=== PATIENT | female | born 1975 | race Caucasian/White ===

== ENCOUNTER 2020-10-04 16:54 | Inpatient (IN) | payer BC ==
[~2020-10-04] VITALS: Ht 170.2 cm; Wt 135.0 kg
--- NOTE | 2020-10-04 17:22 | NUR ---
Patient has a sigmoid colon abcess and is scheduled for immediate surgery.
[2020-10-04 17:39] LABS: BASOPHILS # (AUTO) 0.1 X10'3 (0-0.2); BASOPHILS % (AUTO) 0.5 % (0-1); EOSINOPHILS # (AUTO) 0.1 X10'3 (0-0.9); EOSINOPHILS % (AUTO) 0.4 % (0-6); HEMATOCRIT 35.6 % (35.0-45.0); HEMOGLOBIN 11.9 g/dl (12.0-16.0); LYMPHOCYTES % (AUTO) 10.7 % (21-51); MEAN CORPUSCULAR HEMOGLOBIN 29.5 PG (27.0-31.0); MEAN CORPUSCULAR HGB CONC 33.3 g/dL (33.0-36.5); MEAN CORPUSCULAR VOLUME 88.7 FL (78-98); MEAN PLATELET VOLUME 7.9 FL (7.4-10.4); MONOCYTES # (AUTO) 1.4 X10'3 (0-0.9); MONOCYTES % (AUTO) 7.6 % (2-12); NEUTROPHILS # (AUTO) 14.8 X10'3 (1.8-7.7); NEUTROPHILS % (AUTO) 80.8 % (42-75); PLATELET COUNT 589 X10'3 (140-440); RED BLOOD COUNT 4.02 X10'6 (4.20-5.60); RED CELL DISTRIBUTION WIDTH 14.3 % (11.5-14.5); WHITE BLOOD COUNT 18.3 X10'3 (4.5-11.0)
[2020-10-04] MEDS ORDERED: ONDA8TAB13 PO (17:39)
[2020-10-04] MEDS ORDERED: PROM25TA14 PO (17:39)
[2020-10-04] MEDS ORDERED: METR-159 PO (17:39)
[2020-10-04] MEDS ORDERED: BACDS PO (17:39)
[2020-10-04] MEDS ORDERED: CETI10TA15 PO (17:45)
[2020-10-04] MEDS ORDERED: MULT-384 PO (17:45)
[2020-10-04] MEDS ORDERED: IBUP-24 PO (17:45)
[2020-10-04 17:55] LABS: ALANINE AMINOTRANSFERASE 36 U/L (12-78); ALBUMIN 2.8 G/DL (3.4-5.0); ALBUMIN/GLOBULIN RATIO 0.5 (1.1-1.5); ALKALINE PHOSPHATASE 212 IU/L (46-116); ANION GAP 8 (8-16); ASPARTATE AMINO TRANSFERASE 29 U/L (10-37); BILIRUBIN,TOTAL 0.6 MG/DL (0.1-1.0); BLOOD UREA NITROGEN 9 MG/DL (7-18); BUN/CREATININE RATIO 9.4 (6.6-38.0); CALCIUM 9.6 MG/DL (8.5-10.1); CHLORIDE 94 MMOL/L (99-107); CREATININE 0.96 MG/DL (0.40-0.90); GLUCOSE 111 MG/DL (70-104); SODIUM 132 MMOL/L (135-145); TOTAL PROTEIN 8.7 G/DL (6.4-8.2); eGFR 63 ML/MIN
[2020-10-04 18:01] LABS: POTASSIUM 2.8 MMOL/L (3.5-5.1)
[2020-10-04] MEDS ORDERED: ondansetron/PF 4mg/2ml inj IV ONE (18:05)
[2020-10-04] MEDS ORDERED: morphine 4 MG/ML inj SYRINge IV ONE (18:05)
[2020-10-04] MEDS ORDERED: potassium Cl 20 mEq SR tablet PO STA (19:17)
[2020-10-04] MEDS ORDERED: acetaminophen 325mg tablet PO PRN ×2 (19:40)
[2020-10-04] MEDS ORDERED: potassium Cl 20 mEq SR tablet PO PRN (19:40)
[2020-10-04] MEDS ORDERED: bisacodyl 10mg suppository rectal RC PRN (19:40)
[2020-10-04] MEDS ORDERED: ondansetron/PF 4mg/2ml inj IV PRN (19:40)
[2020-10-04] MEDS ORDERED: potassium Cl 40MEQ/1/2NS 520ml 520 ML IV PRN ×2 (19:40)
[2020-10-04] MEDS ORDERED: magnesium hydroxide 30ml (MOM) UD suspension PO PRN (19:40)
[2020-10-04] MEDS ORDERED: magnesium 2GM in 50ml NS 50 ML IV PRN (19:40)
[2020-10-04] MEDS ORDERED: HYDROcodone/acetaminophen 5mg/325mg tablet PO PRN (19:40)
[2020-10-04] MEDS ORDERED: magnesium 4gm in 100ml NS 100 ML IV PRN (19:40)
[2020-10-04] MEDS ORDERED: magnesium Cl slow-release 64mg tablet PO PRN (19:40)
[2020-10-04] MEDS ORDERED: mag hydrox/Alum hydrox/simeth 30ml oral suspension PO PRN (19:40)
[2020-10-04] MEDS ORDERED: piperacillin/tazo 4.5gm/100ml 100 ML IV ONE (19:55)
[2020-10-04 20:00] LABS: PARTIAL THROMBOPLASTIN TIME 31 SECONDS (22-32)
[2020-10-04] MEDS: K and/or MAG REPLACEMENT MC SCH (20:00)
[2020-10-04] MEDS ORDERED: piperacillin/tazo 4.5gm/100ml 100 ML IV SCH (20:00)
[2020-10-04] MEDS: normal saline 1000ml 1,000 ML IV SCH (20:18)
[2020-10-04] MEDS ORDERED: temazepam 15mg capsule PO PRN (21:00)
[2020-10-04] MEDS: HYDROcodone/acetaminophen 10/325mg tab PO PRN (21:13)
[2020-10-04] MEDS: HYDROmorphone inj. 0.5 MG/0.5 ML DISP.SYRIN IV PRN (22:05)
[2020-10-04] MEDS: piperacillin/tazo 3.375gm/50ml 50 ML IV SCH (23:56)
[2020-10-05] VITALS (9 sets, daily range): BP systolic 104–176; BP diastolic 70–104
[2020-10-05] MEDS: HYDROmorphone inj. 0.5 MG/0.5 ML DISP.SYRIN IV PRN ×3 (02:28→19:59)
[2020-10-05] MEDS: normal saline 1000ml 1,000 ML IV SCH ×2 (05:25→16:37)
[2020-10-05 06:29] LABS: BASOPHILS % (AUTO) 0.3 % (0-1); EOSINOPHILS # (AUTO) 0.1 X10'3 (0-0.9); EOSINOPHILS % (AUTO) 0.6 % (0-6); HEMATOCRIT 31.9 % (35.0-45.0); HEMOGLOBIN 10.6 g/dl (12.0-16.0); LYMPHOCYTES # (AUTO) 1.3 X10'3 (1.1-4.8); LYMPHOCYTES % (AUTO) 8.6 % (21-51); MEAN CORPUSCULAR HEMOGLOBIN 29.5 PG (27.0-31.0); MEAN CORPUSCULAR HGB CONC 33.1 g/dL (33.0-36.5); MONOCYTES # (AUTO) 1.3 X10'3 (0-0.9); MONOCYTES % (AUTO) 9.1 % (2-12); NEUTROPHILS # (AUTO) 11.8 X10'3 (1.8-7.7); NEUTROPHILS % (AUTO) 81.4 % (42-75); PLATELET COUNT 519 X10'3 (140-440); RED BLOOD COUNT 3.58 X10'6 (4.20-5.60); RED CELL DISTRIBUTION WIDTH 14.2 % (11.5-14.5); WHITE BLOOD COUNT 14.6 X10'3 (4.5-11.0)
[2020-10-05 06:36] LABS: ALANINE AMINOTRANSFERASE 30 U/L (12-78); ALBUMIN 2.4 G/DL (3.4-5.0); ALBUMIN/GLOBULIN RATIO 0.5 (1.1-1.5); ALKALINE PHOSPHATASE 194 IU/L (46-116); ANION GAP 7 (8-16); ASPARTATE AMINO TRANSFERASE 25 U/L (10-37); BILIRUBIN,TOTAL 0.7 MG/DL (0.1-1.0); BLOOD UREA NITROGEN 9 MG/DL (7-18); CALCIUM 8.7 MG/DL (8.5-10.1); CHLORIDE 98 MMOL/L (99-107); GLUCOSE 104 MG/DL (70-104); MAGNESIUM 2.4 MG/DL (1.5-2.4); POTASSIUM 3.3 MMOL/L (3.5-5.1); SODIUM 135 MMOL/L (135-145); TOTAL CARBON DIOXIDE 29.8 MMOL/L (24-32); TOTAL PROTEIN 7.6 G/DL (6.4-8.2); eGFR 68 ML/MIN
--- NOTE | 2020-10-05 06:49 | NUR ---
Patient in room [facility]. I have received report from Venkata NETTLES and had the opportunity to ask questions and assume patient care.
[2020-10-05] MEDS: cetirizine 10mg tablet PO SCH (07:34)
[2020-10-05] MEDS: piperacillin/tazo 3.375gm/50ml 50 ML IV SCH ×2 (07:34→16:44)
[2020-10-05] MEDS: potassium Cl 20 mEq SR tablet PO PRN ×3 (07:35→18:08)
[2020-10-05] MEDS: K and/or MAG REPLACEMENT MC SCH ×2 (08:00→20:00)
[2020-10-05] MEDS ORDERED: diatr meglu/diatrizoate 30ml oral sol.-(3 dose) bottle PO ONE (10:00)
[2020-10-05] MEDS ORDERED: midazolam 2 mg/2 ml injection ONE (10:21)
[2020-10-05] MEDS ORDERED: fentaNYL/PF 50MCG/1 ML 2ML syringe ONE ×2 (10:21→10:42)
[2020-10-05] MEDS: HYDROcodone/acetaminophen 10/325mg tab PO PRN ×2 (11:11→16:37)
[2020-10-05 11:22] LABS: BFAPPEAR TURBID; BFCOLOR GREEN; BFVOLUME 2 ML
--- NOTE | 2020-10-05 13:06 | NUR ---
Malnutrition consult. Pt met at bedside. Appears well nourished with no visible fat or muscle wasting. No edema. Reports not eating well for 2 weeks r/t fear of pain with eating d/t diverticulitis. Has drain for large pelvic abscess. Per patient diagnosed with diverticulosis, diverticulitis about 20 years ago and having flares past few months. Discussed in detail written handout for nutrition therapy r/t diverticulosis, diverticulitis. Pt verbalized understanding. Provided with RD contact information. No evidence of malnutrition at this time. Addendum: 10/05/20 at [address] Amended: Links added.
--- NOTE | 2020-10-05 17:47 | NUR ---
patient went to IR for drainage of abscess in colon. IR stated 300mls sang/purulent drainage removed . JARROD bulb to left lower abdomen in place . 90 mls drained purrulent/sang drainage on this shift. norco and dilaudid given for pain with effect. will continue to monitor.
--- NOTE | 2020-10-05 18:06 | NUR ---
Patient in room [facility]. I have received report from THO Sen and had the opportunity to ask questions and assume patient care.
--- NOTE | 2020-10-05 18:38 | NUR ---
Problems reprioritized. Patient report given, questions answered & plan of care reviewed with Rohit NETTLES.
[2020-10-05] MEDS: lactobacillus rhamnosus 10,000 MMU CELLS/CAPSULE PO SCH (20:01)
[2020-10-06] VITALS: BP 143/74
[2020-10-06] MEDS: HYDROcodone/acetaminophen 10/325mg tab PO PRN ×6 (00:09→23:43)
[2020-10-06] MEDS: piperacillin/tazo 3.375gm/50ml 50 ML IV SCH ×4 (00:10→23:43)
[2020-10-06] MEDS: normal saline 1000ml 1,000 ML IV SCH ×3 (01:58→19:57)
--- NOTE | 2020-10-06 06:22 | NUR ---
Problems reprioritized. Patient report given, questions answered & plan of care reviewed with THO Arguello.
--- NOTE | 2020-10-06 06:37 | NUR ---
Patient in room [facility]. I have received report from THO Bee and had the opportunity to ask questions and assume patient care.
[2020-10-06 07:00] VITALS: BP 130/80
[2020-10-06 07:19] LABS: BASOPHILS # (AUTO) 0.1 X10'3 (0-0.2); BASOPHILS % (AUTO) 0.6 % (0-1); EOSINOPHILS # (AUTO) 0.2 X10'3 (0-0.9); EOSINOPHILS % (AUTO) 1.6 % (0-6); HEMATOCRIT 31.1 % (35.0-45.0); HEMOGLOBIN 10.4 g/dl (12.0-16.0); LYMPHOCYTES # (AUTO) 1.8 X10'3 (1.1-4.8); LYMPHOCYTES % (AUTO) 19.1 % (21-51); MEAN CORPUSCULAR HGB CONC 33.5 g/dL (33.0-36.5); MEAN CORPUSCULAR VOLUME 89.4 FL (78-98); MEAN PLATELET VOLUME 7.9 FL (7.4-10.4); MONOCYTES # (AUTO) 0.9 X10'3 (0-0.9); MONOCYTES % (AUTO) 9.4 % (2-12); NEUTROPHILS # (AUTO) 6.7 X10'3 (1.8-7.7); NEUTROPHILS % (AUTO) 69.3 % (42-75); PLATELET COUNT 520 X10'3 (140-440); RED BLOOD COUNT 3.48 X10'6 (4.20-5.60); RED CELL DISTRIBUTION WIDTH 14.2 % (11.5-14.5); WHITE BLOOD COUNT 9.7 X10'3 (4.5-11.0)
[2020-10-06 07:20] LABS: ALANINE AMINOTRANSFERASE 30 U/L (12-78); ALBUMIN 2.2 G/DL (3.4-5.0); ALBUMIN/GLOBULIN RATIO 0.4 (1.1-1.5); ALKALINE PHOSPHATASE 176 IU/L (46-116); ANION GAP 5 (8-16); ASPARTATE AMINO TRANSFERASE 28 U/L (10-37); BILIRUBIN,TOTAL 0.6 MG/DL (0.1-1.0); BLOOD UREA NITROGEN 9 MG/DL (7-18); BUN/CREATININE RATIO 10.6 (6.6-38.0); CALCIUM 8.3 MG/DL (8.5-10.1); CHLORIDE 102 MMOL/L (99-107); CREATININE 0.85 MG/DL (0.40-0.90); GLUCOSE 99 MG/DL (70-104); MAGNESIUM 2.2 MG/DL (1.5-2.4); POTASSIUM 3.8 MMOL/L (3.5-5.1); SODIUM 137 MMOL/L (135-145); TOTAL CARBON DIOXIDE 30.5 MMOL/L (24-32); TOTAL PROTEIN 7.2 G/DL (6.4-8.2); eGFR 72 ML/MIN
[2020-10-06] MEDS: lactobacillus rhamnosus 10,000 MMU CELLS/CAPSULE PO SCH ×2 (07:23→19:57)
[2020-10-06] MEDS: cetirizine 10mg tablet PO SCH (07:23)
[2020-10-06] MEDS: K and/or MAG REPLACEMENT MC SCH ×2 (08:00→20:00)
[2020-10-06 12:37] VITALS: BP 109/65
[2020-10-06] MEDS: HYDROmorphone inj. 0.5 MG/0.5 ML DISP.SYRIN IV PRN (17:03)
[2020-10-06 18:30] VITALS: BP 131/84
--- NOTE | 2020-10-06 18:36 | NUR ---
Patient in room [facility]. I have received report from THO Arguello and had the opportunity to ask questions and assume patient care. Patient resting comfortably in bed, finishing up meal.
--- NOTE | 2020-10-06 18:46 | NUR ---
Problems reprioritized. Patient report given, questions answered & plan of care reviewed with THO Mcallister.
[2020-10-07] VITALS: BP 120/84
[2020-10-07] MEDS: HYDROcodone/acetaminophen 10/325mg tab PO PRN ×4 (03:44→20:04)
--- NOTE | 2020-10-07 06:46 | NUR ---
Problems reprioritized. Patient report given, questions answered & plan of care reviewed with THO Villagomez.
--- NOTE | 2020-10-07 06:52 | NUR ---
Patient in room [facility]. I have received report from Ary NETTLES and had the opportunity to ask questions and assume patient care.
[2020-10-07 07:29] LABS: BASOPHILS # (AUTO) 0.1 X10'3 (0-0.2); BASOPHILS % (AUTO) 0.8 % (0-1); EOSINOPHILS # (AUTO) 0.3 X10'3 (0-0.9); EOSINOPHILS % (AUTO) 3.5 % (0-6); HEMATOCRIT 30.4 % (35.0-45.0); HEMOGLOBIN 9.9 g/dl (12.0-16.0); LYMPHOCYTES # (AUTO) 1.8 X10'3 (1.1-4.8); LYMPHOCYTES % (AUTO) 24.6 % (21-51); MEAN CORPUSCULAR HEMOGLOBIN 29.2 PG (27.0-31.0); MEAN CORPUSCULAR HGB CONC 32.5 g/dL (33.0-36.5); MEAN CORPUSCULAR VOLUME 89.6 FL (78-98); MEAN PLATELET VOLUME 7.9 FL (7.4-10.4); MONOCYTES # (AUTO) 0.7 X10'3 (0-0.9); MONOCYTES % (AUTO) 9.3 % (2-12); NEUTROPHILS # (AUTO) 4.6 X10'3 (1.8-7.7); NEUTROPHILS % (AUTO) 61.8 % (42-75); PLATELET COUNT 514 X10'3 (140-440); RED BLOOD COUNT 3.39 X10'6 (4.20-5.60); RED CELL DISTRIBUTION WIDTH 14.5 % (11.5-14.5); WHITE BLOOD COUNT 7.4 X10'3 (4.5-11.0)
[2020-10-07] MEDS: lactobacillus rhamnosus 10,000 MMU CELLS/CAPSULE PO SCH ×2 (07:33→20:05)
[2020-10-07] MEDS: cetirizine 10mg tablet PO SCH (07:33)
[2020-10-07] MEDS: piperacillin/tazo 3.375gm/50ml 50 ML IV SCH ×3 (07:33→23:11)
[2020-10-07] MEDS: normal saline 1000ml 1,000 ML IV SCH ×2 (07:34→17:05)
[2020-10-07 08:00] VITALS: BP 132/89
[2020-10-07] MEDS: K and/or MAG REPLACEMENT MC SCH ×2 (08:00→20:00)
[2020-10-07 08:08] LABS: ALANINE AMINOTRANSFERASE 32 U/L (12-78); ALBUMIN 2.1 G/DL (3.4-5.0); ALBUMIN/GLOBULIN RATIO 0.5 (1.1-1.5); ALKALINE PHOSPHATASE 153 IU/L (46-116); ANION GAP 7 (8-16); ASPARTATE AMINO TRANSFERASE 35 U/L (10-37); BILIRUBIN,TOTAL 0.3 MG/DL (0.1-1.0); BLOOD UREA NITROGEN 9 MG/DL (7-18); BUN/CREATININE RATIO 11.1 (6.6-38.0); CHLORIDE 104 MMOL/L (99-107); CREATININE 0.81 MG/DL (0.40-0.90); GLUCOSE 88 MG/DL (70-104); MAGNESIUM 2.3 MG/DL (1.5-2.4); POTASSIUM 3.9 MMOL/L (3.5-5.1); SODIUM 138 MMOL/L (135-145); TOTAL CARBON DIOXIDE 26.9 MMOL/L (24-32); TOTAL PROTEIN 6.7 G/DL (6.4-8.2); eGFR 76 ML/MIN
[2020-10-07 11:00] VITALS: BP 142/97
--- NOTE | 2020-10-07 18:00 | NUR ---
Patient in room [facility]. I have received report from Dahlia NETTLES and had the opportunity to ask questions and assume patient care.
--- NOTE | 2020-10-07 18:29 | NUR ---
Problems reprioritized. Patient report given, questions answered & plan of care reviewed with Eliza NETTLES.
[2020-10-07 19:00] VITALS: BP 136/89
[2020-10-07] MEDS: diatr meglu/diatrizoate 30ml oral sol.-(3 dose) bottle PO SCH (20:43)
[2020-10-08] VITALS: BP 142/93
[2020-10-08] MEDS: HYDROcodone/acetaminophen 10/325mg tab PO PRN ×5 (00:06→21:17)
[2020-10-08] MEDS: normal saline 1000ml 1,000 ML IV SCH ×3 (03:31→23:43)
[2020-10-08 06:13] LABS: BASOPHILS # (AUTO) 0.1 X10'3 (0-0.2); BASOPHILS % (AUTO) 0.9 % (0-1); EOSINOPHILS # (AUTO) 0.2 X10'3 (0-0.9); EOSINOPHILS % (AUTO) 3.4 % (0-6); HEMATOCRIT 32.1 % (35.0-45.0); HEMOGLOBIN 10.5 g/dl (12.0-16.0); LYMPHOCYTES # (AUTO) 2.3 X10'3 (1.1-4.8); LYMPHOCYTES % (AUTO) 32.6 % (21-51); MEAN CORPUSCULAR HEMOGLOBIN 29.3 PG (27.0-31.0); MEAN CORPUSCULAR HGB CONC 32.6 g/dL (33.0-36.5); MEAN CORPUSCULAR VOLUME 89.9 FL (78-98); MEAN PLATELET VOLUME 7.8 FL (7.4-10.4); MONOCYTES # (AUTO) 0.6 X10'3 (0-0.9); MONOCYTES % (AUTO) 8.1 % (2-12); NEUTROPHILS # (AUTO) 3.8 X10'3 (1.8-7.7); PLATELET COUNT 588 X10'3 (140-440); RED BLOOD COUNT 3.57 X10'6 (4.20-5.60); RED CELL DISTRIBUTION WIDTH 14.4 % (11.5-14.5); WHITE BLOOD COUNT 6.9 X10'3 (4.5-11.0)
--- NOTE | 2020-10-08 06:24 | NUR ---
Problems reprioritized. Patient report given, questions answered & plan of care reviewed with Juana NETTLES.
--- NOTE | 2020-10-08 06:34 | NUR ---
Patient in room [facility]. I have received report from THO Kay and had the opportunity to ask questions and assume patient care.
[2020-10-08 06:38] LABS: ALANINE AMINOTRANSFERASE 37 U/L (12-78); ALBUMIN 2.3 G/DL (3.4-5.0); ALBUMIN/GLOBULIN RATIO 0.5 (1.1-1.5); ALKALINE PHOSPHATASE 158 IU/L (46-116); ANION GAP 8 (8-16); ASPARTATE AMINO TRANSFERASE 38 U/L (10-37); BILIRUBIN,TOTAL 0.3 MG/DL (0.1-1.0); BLOOD UREA NITROGEN 9 MG/DL (7-18); BUN/CREATININE RATIO 11.3 (6.6-38.0); CALCIUM 8.9 MG/DL (8.5-10.1); CHLORIDE 105 MMOL/L (99-107); GLUCOSE 91 MG/DL (70-104); MAGNESIUM 2.2 MG/DL (1.5-2.4); POTASSIUM 3.9 MMOL/L (3.5-5.1); SODIUM 140 MMOL/L (135-145); TOTAL CARBON DIOXIDE 27.4 MMOL/L (24-32); TOTAL PROTEIN 7.3 G/DL (6.4-8.2); eGFR 78 ML/MIN
[2020-10-08 07:00] VITALS: BP 136/96
[2020-10-08] MEDS: K and/or MAG REPLACEMENT MC SCH ×2 (07:10→20:00)
[2020-10-08] MEDS: lactobacillus rhamnosus 10,000 MMU CELLS/CAPSULE PO SCH ×2 (07:17→21:17)
[2020-10-08] MEDS: diatr meglu/diatrizoate 30ml oral sol.-(3 dose) bottle PO SCH ×2 (07:17→10:29)
[2020-10-08] MEDS: cetirizine 10mg tablet PO SCH (07:17)
[2020-10-08] MEDS: piperacillin/tazo 3.375gm/50ml 50 ML IV SCH ×3 (07:17→23:41)
[2020-10-08] MEDS ORDERED: iohexol 300mg/ml 100ml inj. ONE (09:59)
[2020-10-08 11:00] VITALS: BP 154/109
[2020-10-08] MEDS: HYDROmorphone inj. 0.5 MG/0.5 ML DISP.SYRIN IV PRN (17:42)
--- NOTE | 2020-10-08 18:56 | NUR ---
Problems reprioritized. Patient report given, questions answered & plan of care reviewed with THO Sung.
[2020-10-08 19:00] VITALS: BP 129/82
[2020-10-08] MEDS: enoxaparin 40mg/0.4ml syringe SUBCUT SCH (21:18)
[2020-10-09] VITALS: BP 127/90
[2020-10-09] MEDS: HYDROcodone/acetaminophen 10/325mg tab PO PRN ×3 (01:59→18:39)
[2020-10-09] MEDS: HYDROmorphone inj. 0.5 MG/0.5 ML DISP.SYRIN IV PRN (04:16)
[2020-10-09 06:19] LABS: BASOPHILS # (AUTO) 0.1 X10'3 (0-0.2); BASOPHILS % (AUTO) 0.9 % (0-1); EOSINOPHILS # (AUTO) 0.2 X10'3 (0-0.9); HEMATOCRIT 30.1 % (35.0-45.0); LYMPHOCYTES # (AUTO) 1.9 X10'3 (1.1-4.8); LYMPHOCYTES % (AUTO) 23.8 % (21-51); MEAN CORPUSCULAR HGB CONC 33.3 g/dL (33.0-36.5); MEAN CORPUSCULAR VOLUME 90.1 FL (78-98); MEAN PLATELET VOLUME 7.7 FL (7.4-10.4); MONOCYTES # (AUTO) 0.6 X10'3 (0-0.9); MONOCYTES % (AUTO) 7.4 % (2-12); NEUTROPHILS # (AUTO) 5.1 X10'3 (1.8-7.7); NEUTROPHILS % (AUTO) 64.9 % (42-75); PLATELET COUNT 551 X10'3 (140-440); RED BLOOD COUNT 3.34 X10'6 (4.20-5.60); RED CELL DISTRIBUTION WIDTH 14.3 % (11.5-14.5); WHITE BLOOD COUNT 7.8 X10'3 (4.5-11.0)
[2020-10-09 06:24] LABS: ALANINE AMINOTRANSFERASE 36 U/L (12-78); ALBUMIN 2.3 G/DL (3.4-5.0); ALBUMIN/GLOBULIN RATIO 0.5 (1.1-1.5); ALKALINE PHOSPHATASE 136 IU/L (46-116); ANION GAP 8 (8-16); ASPARTATE AMINO TRANSFERASE 36 U/L (10-37); BILIRUBIN,TOTAL 0.3 MG/DL (0.1-1.0); BLOOD UREA NITROGEN 8 MG/DL (7-18); BUN/CREATININE RATIO 9.2 (6.6-38.0); CALCIUM 8.7 MG/DL (8.5-10.1); CHLORIDE 106 MMOL/L (99-107); CREATININE 0.87 MG/DL (0.40-0.90); GLUCOSE 96 MG/DL (70-104); MAGNESIUM 2.1 MG/DL (1.5-2.4); SODIUM 141 MMOL/L (135-145); TOTAL CARBON DIOXIDE 26.9 MMOL/L (24-32); TOTAL PROTEIN 6.8 G/DL (6.4-8.2); eGFR 70 ML/MIN
[2020-10-09 07:00] VITALS: BP 122/78
[2020-10-09] MEDS: K and/or MAG REPLACEMENT MC SCH ×2 (07:02→20:00)
[2020-10-09] MEDS: lactobacillus rhamnosus 10,000 MMU CELLS/CAPSULE PO SCH ×2 (07:44→19:18)
[2020-10-09] MEDS: cetirizine 10mg tablet PO SCH (07:44)
[2020-10-09] MEDS: piperacillin/tazo 3.375gm/50ml 50 ML IV SCH ×2 (07:44→17:00)
[2020-10-09 11:00] VITALS: BP 141/95
--- NOTE | 2020-10-09 14:32 | NUR ---
Initial: Has drain for large pelvic diverticular abscess, minimal output. Receiving treatment for MDRO. Per patient diagnosed with diverticulosis, diverticulitis about 20 years ago and having flares past few months. Appetite improved, eating 75-100% for two days. No other nutrition concerns at this time. recommend: 1. continue soft to chew/low fiber diet 2. bowel care as needed 3. weight per rx Addendum: 10/09/20 at [address] Amended: Links added.
[2020-10-09 18:00] VITALS: BP 150/85
--- NOTE | 2020-10-09 18:28 | NUR ---
Patient in room [facility]. I have received report from THO Arias and had the opportunity to ask questions and assume patient care
--- NOTE | 2020-10-09 18:28 | NUR ---
Problems reprioritized. Patient report given, questions answered & plan of care reviewed with THO Trejo.
[2020-10-09] MEDS: enoxaparin 40mg/0.4ml syringe SUBCUT SCH (19:18)
[2020-10-10] VITALS: BP 144/85
[2020-10-10] MEDS: piperacillin/tazo 3.375gm/50ml 50 ML IV SCH ×4 (00:08→23:34)
[2020-10-10] MEDS: HYDROcodone/acetaminophen 10/325mg tab PO PRN ×2 (01:24→17:35)
[2020-10-10] MEDS: HYDROmorphone inj. 0.5 MG/0.5 ML DISP.SYRIN IV PRN (04:00)
--- NOTE | 2020-10-10 06:32 | NUR ---
Problems reprioritized. Patient report given, questions answered & plan of care reviewed with THO Tay.
--- NOTE | 2020-10-10 06:43 | NUR ---
Patient in room [facility]. I have received report from Natalie Trejo RN and had the opportunity to ask questions and assume patient care.
[2020-10-10 08:00] VITALS: BP 133/81
[2020-10-10] MEDS: K and/or MAG REPLACEMENT MC SCH ×2 (08:00→19:45)
[2020-10-10] MEDS: cetirizine 10mg tablet PO SCH (08:13)
[2020-10-10] MEDS: lactobacillus rhamnosus 10,000 MMU CELLS/CAPSULE PO SCH ×2 (08:13→19:43)
[2020-10-10 12:00] VITALS: BP 138/97
--- NOTE | 2020-10-10 18:49 | NUR ---
Problems reprioritized. Patient report given, questions answered & plan of care reviewed with Linda RN.
[2020-10-10 19:30] VITALS: BP 141/113
[2020-10-10] MEDS: enoxaparin 40mg/0.4ml syringe SUBCUT SCH (19:43)
[2020-10-11] VITALS: BP 128/74
[2020-10-11] MEDS: HYDROcodone/acetaminophen 10/325mg tab PO PRN ×3 (03:12→19:57)
[2020-10-11 07:00] VITALS: BP 130/74
[2020-10-11] MEDS: cetirizine 10mg tablet PO SCH (07:51)
[2020-10-11] MEDS: lactobacillus rhamnosus 10,000 MMU CELLS/CAPSULE PO SCH ×2 (07:51→19:19)
[2020-10-11] MEDS: piperacillin/tazo 3.375gm/50ml 50 ML IV SCH ×3 (07:53→23:43)
[2020-10-11] MEDS: K and/or MAG REPLACEMENT MC SCH ×2 (08:00→20:00)
[2020-10-11] MEDS ORDERED: CEFD300C3 PO (10:25)
[2020-10-11] MEDS ORDERED: METR-159 PO (10:25)
[2020-10-11 11:00] VITALS: BP 135/86
[2020-10-11 18:00] VITALS: BP 127/72
--- NOTE | 2020-10-11 18:43 | NUR ---
Problems reprioritized. Patient report given, questions answered & plan of care reviewed with Rohit NETTLES.
--- NOTE | 2020-10-11 18:45 | NUR ---
Patient in room [facility]. I have received report from THO Eller and had the opportunity to ask questions and assume patient care.
[2020-10-11] MEDS: enoxaparin 40mg/0.4ml syringe SUBCUT SCH (19:19)
[2020-10-12] VITALS: BP 141/68
--- NOTE | 2020-10-12 06:02 | NUR ---
Problems reprioritized. Patient report given, questions answered & plan of care reviewed with THO Timmons.
--- NOTE | 2020-10-12 06:25 | NUR ---
Patient in room [facility]. I have received report from THO MCDONNELL and had the opportunity to ask questions and assume patient care.
[2020-10-12 08:00] VITALS: BP 116/76
[2020-10-12] MEDS: K and/or MAG REPLACEMENT MC SCH (08:00)
[2020-10-12] MEDS: piperacillin/tazo 3.375gm/50ml 50 ML IV SCH (08:17)
[2020-10-12] MEDS: HYDROcodone/acetaminophen 10/325mg tab PO PRN ×2 (08:18→15:45)
[2020-10-12] MEDS: cetirizine 10mg tablet PO SCH (08:18)
[2020-10-12] MEDS: lactobacillus rhamnosus 10,000 MMU CELLS/CAPSULE PO SCH (08:18)
--- NOTE | 2020-10-12 09:39 | NUR ---
5F DUAL LUMEN MIDLINE PLACED TO RIGHT BASILIC VEIN X'S 1 ATTEMPT WITH SUCCESS USING ULTRASOUND GUIDANCE, TIP ENDS MID-AXILLARY. Linda HARTMANN PICC RN
[2020-10-12] MEDS ORDERED: HYDR-4353 PO (10:19)
[2020-10-12 11:00] VITALS: BP 127/83
[2020-10-12] MEDS ORDERED: ertapenem sod inj 1 GM in normal saline 100ml IV soln 100 ML IV SCH (15:00)
--- NOTE | 2020-10-12 17:40 | NUR ---
PATIENT STABLE AND APPROPRIATE FOR DISCHARGE, IV TAKEN OUT, EDUCATION GIVEN AND SUPPLIES TO DRAIN JARROD DRAIN, SCRIPT FOR PAIN MEDS GIVEN TO PATIENT, ALL BELONGINGS SENT WITH PATIENT, PATIENT TAKEN BY WHEELCHAIR TO LOBBY TO AN AWAITING CAR WHERE FAMILY WILL TAKE PATIENT HOME
== END 2020-10-12 17:42 | disposition home or self-care (01) | DRG 391 ==
LOC: ER 16:55 → ED HOLD 19:37 → SUR 3N 21:45
PROVIDERS: ADMIT Family Medicine; ATTEND Internal Medicine
PROC: 0W9J3ZZ Drainage of Pelvic Cavity, Percutaneous Approach (ICD-10-PCS; principal; 2020-10-05)
DX: K57.20 Diverticulitis of large intestine with perforation and abscess without bleeding (principal); E43 Unspecified severe protein-calorie malnutrition; N17.0 Acute kidney failure with tubular necrosis; E87.1 Hypo-osmolality and hyponatremia; Z16.24 Resistance to multiple antibiotics; Z68.42 Body mass index [BMI] 45.0-49.9, adult; B96.1 Klebsiella pneumoniae [K. pneumoniae] as the cause of diseases classified elsewhere; D64.9 Anemia, unspecified; E87.6 Hypokalemia; J45.909 Unspecified asthma, uncomplicated; M77.9 Enthesopathy, unspecified; Z88.1 Allergy status to other antibiotic agents; Z87.891 Personal history of nicotine dependence
CPT/HCPCS: 36415; 49406; 74177; 76700; 76937; 80053; 83605; 83735; 85025; 85610; 85730; 87040; 87070; 87077; 87081; 87186; 89051; 96374; 99152; 99153; 99285; G0378; J1170; J1335; J1650; J2250; J2270; J2405; J2543; J3010; J7030; Q9963; Q9967

== ENCOUNTER 2021-01-11 05:36 | Inpatient (IN) | payer BC ==
[2021-01-04 11:09] LABS: BASOPHILS % (AUTO) 0.7 % (0-1); EOSINOPHILS # (AUTO) 0.1 X10'3 (0-0.9); EOSINOPHILS % (AUTO) 1.6 % (0-6); LYMPHOCYTES # (AUTO) 1.7 X10'3 (1.1-4.8); LYMPHOCYTES % (AUTO) 25.1 % (21-51); MEAN CORPUSCULAR HEMOGLOBIN 29.9 PG (27.0-31.0); MEAN CORPUSCULAR HGB CONC 32.8 g/dL (33.0-36.5); MEAN CORPUSCULAR VOLUME 91.3 FL (78-98); MEAN PLATELET VOLUME 7.8 FL (7.4-10.4); MONOCYTES # (AUTO) 0.5 X10'3 (0-0.9); MONOCYTES % (AUTO) 7.7 % (2-12); NEUTROPHILS # (AUTO) 4.3 X10'3 (1.8-7.7); NEUTROPHILS % (AUTO) 64.9 % (42-75); PRE OP HEMATOCRIT 39.6 % (35.0-45.0); PRE OP PLATELET COUNT 352 X10'3 (140-440); RED BLOOD COUNT 4.34 X10'6 (4.20-5.60); RED CELL DISTRIBUTION WIDTH 13.9 % (11.5-14.5)
[2021-01-04 11:11] LABS: URINE HCG NEGATIVE (NEG)
[2021-01-04 11:12] LABS: CLARITY,URINE CLEAR (Clear); COLOR,URINE YELLOW (Yellow); GLUCOSE, URINE NEGATIVE (Neg); KETONES,URINE NEGATIVE (Neg); LEUKOCYTE ESTERASE ,URINE NEGATIVE (Neg); NITRITES, URINE NEGATIVE (Neg); OCCULT BLOOD,URINE SMALL (Neg); PROTEIN,URINE NEGATIVE (Neg); UA COLLECTION TYPE CLN CATCH MIDSTREAM; UROBILINOGEN,URINE 0.2 E.U/dL (0.2-1.0)
[2021-01-04 11:18] LABS: PRE OP PROTIME 10.4 SECONDS (9.0-12.0)
[2021-01-04 11:29] LABS: SQUAMOUS EPITHELIAL CELL,UR FEW /LPF (FEW)
[2021-01-04 11:29] LABS: ALBUMIN 3.4 G/DL (3.4-5.0); ALBUMIN/GLOBULIN RATIO 0.9 (1.1-1.5); ALKALINE PHOSPHATASE 86 IU/L (46-116); BLOOD UREA NITROGEN 21 MG/DL (7-18); BUN/CREATININE RATIO 24.4 (6.6-38.0); CALCIUM 9.2 MG/DL (8.5-10.1); CHLORIDE 108 MMOL/L (99-107); CREATININE 0.86 MG/DL (0.40-0.90); PRE OP ALT 25 U/L (30-65); PRE OP ANION GAP 7 (8-16); PRE OP AST 15 U/L (10-37); PRE OP BILIRUB, TOTAL 0.4 MG/DL (0.0-1.0); PRE OP GLUCOSE 84 MG/DL (70-104); PRE OP POTASSIUM 4.4 MMOL/L (3.4-5.1); PRE OP SODIUM 142 MMOL/L (135-145); TOTAL CARBON DIOXIDE 26.6 MMOL/L (24-32); TOTAL PROTEIN 7.3 G/DL (6.4-8.2); eGFR 71 ML/MIN
[2021-01-04 11:31] LABS: RBC,URINE 0-2 /HPF (0-2); WBC,URINE 0-4 /HPF (0-4)
[2021-01-04 11:32] LABS: BACTERIA,URINE FEW /HPF (Neg)
[2021-01-11] VITALS (30 sets, daily range): BP systolic 102–140; BP diastolic 59–99
[~2021-01-11] VITALS: Ht 170.2 cm; Wt 138.3 kg
[~2021-01-11 05:36] MED LIST: ASPI-147 PO; CETI10TA15 PO; IBUP-24 PO; POLY119P2 PO; ceFOXitin 2GM-NS 100mL ADDvant 100 ML IV ONE; famotidine 20mg tablet PO ONE; metroNIDAZOLE-Flagyl 500mg/NS 100ml IVPB IV ONE
[2021-01-11] MEDS ORDERED: LIDOcaine 1% (10mg/ml) 2ml vial ONE (05:51)
[2021-01-11] MEDS: ringers solution, lacted 1,000 ML IV SCH ×2 (06:12→15:38)
[2021-01-11] MEDS ORDERED: BUPIVAcaine/PF 2.5 mg/ml (0.25%) 30ml vial ONE (07:39)
[2021-01-11] MEDS ORDERED: glycopyrrolate 0.2mg/ml inj ONE (08:05)
[2021-01-11] MEDS ORDERED: pancuronium br 1mg/ml inj IV ONE (08:05)
[2021-01-11] MEDS ORDERED: neostigmine methylsulfate 1 MG/ML 10ml vial ONE (08:05)
[2021-01-11] MEDS ORDERED: sevoflurane 250ml liquid IH ONE (08:05)
[2021-01-11] MEDS ORDERED: midazolam 1 mg/ML 2ml injection ONE (08:16)
[2021-01-11] MEDS ORDERED: fentaNYL /PF 50mcg/ml 5ml ampule ONE (08:17)
[2021-01-11] MEDS ORDERED: propofol inj 20 ML IV ONE (08:18)
[2021-01-11] MEDS ORDERED: LIDOcaine 2% (20mg/ml) 5ml vial ONE (08:18)
[2021-01-11] MEDS ORDERED: rocuronium 10mg/ml inj IV ONE (08:19)
[2021-01-11] MEDS ORDERED: dexamethasone sod phosphate 4mg/ml inj. ONE (08:27)
[2021-01-11] MEDS ORDERED: ondansetron/PF 4mg/2ml inj ONE (08:27)
[2021-01-11] MEDS ORDERED: ringers solution, lacted 1,000 ML IV SCH (09:15)
[2021-01-11] MEDS ORDERED: meperidine/PF 25mg/ml syringe IV PRN ×2 (09:15)
[2021-01-11] MEDS ORDERED: morphine 2 MG/ML inj. syringe IV PRN (09:15)
[2021-01-11] MEDS ORDERED: proCHLORperazine 10 MG/2 ml inj IV PRN (09:15)
[2021-01-11] MEDS ORDERED: ondansetron/PF 4mg/2ml inj IV PRN (09:15)
[2021-01-11] MEDS ORDERED: acetaminophen 1,000mg/100ml IV 100 ML IV ONE (10:20)
[2021-01-11] MEDS ORDERED: meperidine/PF 25mg/ml syringe ONE (10:21)
--- NOTE | 2021-01-11 11:35 | NUR ---
Received from OR via BED, accompanied by Anesthesiologist DR GALINDO and report given by Anesthesiologist. PT DROWSY, ABDOMEN W/4 LAP SITES W/DERMABOND, NO DRAINAGE, LOWER ABDOMEN W/SMALL ISLAND DRSG COVERING INCISION CDI. NAVA CATHETER TO GRAVITY DRAINAGE W/DUQUE URINE IN DRAINAGE BAG. Addendum: 01/11/21 at 1237 by Altagracia Kasper RN Amended: Links added.
[2021-01-11] MEDS: meperidine/PF 25mg/ml syringe IV PRN ×2 (11:43→12:43)
[2021-01-11] MEDS ORDERED: ketorolac trometh. 30mg/ml inj. IV ONE (11:50)
[2021-01-11] MEDS: morphine 4 MG/ML inj SYRINge IV PRN ×3 (11:51→12:17)
--- NOTE | 2021-01-11 13:04 | NUR ---
CALLED DR BLOOM W/UPDATE OF PTS PAIN, SPASMS, AND LEAKING AROUND NAVA CATHETER, RESIDENT WORKING W/DR BLOOM CAME IN AND REMOVED A PORTION OF THE CATHETER WITH SMALL AMT OF URINE RETURN IN CATHETER TUBING. ORDERS TO START A DILAUDID CADD. Addendum: 01/11/21 at 1307 by Altagracia aKsper RN Amended: Links added.
[2021-01-11] MEDS ORDERED: normal saline 1000ml 1,000 ML IV SCH (13:10)
[2021-01-11] MEDS ORDERED: CADD PCA waste documentation MC PRN ×2 (13:10→14:20)
[2021-01-11] MEDS ORDERED: naloxone 0.4 mg/ml inj IV PRN ×2 (13:10→14:20)
--- NOTE | 2021-01-11 14:00 | NUR ---
DR BLOOM RESIDENT RETURNED FOR ASSESSMENT, PT W/APPROX 50 ML URINE IN DRAINAGE BAG, (REMAINS DUQUE COLORED BUT LIGHTENING IN COLOR. BLADDER SCANNED PT FOR 4 ML URINE, ORDERS TO GIVEN REST OF IVF (700) A FLUID BOLUS. BOLUS INFUSING, DILAUDID CADD ATTACHED AND PT USING CORRECTLY, PT STATES SHE IS FEELING BETTER, PAIN IMPROVED. REPORT CALLED TO COLORECTAL SURGEON. Addendum: 01/11/21 at 1544 by Altagracia Kasper RN Amended: Links added.
[2021-01-11] MEDS: HYDROmorphone/NS 1 mg/ml CADD 50 ML IV SCH ×6 (14:21→22:46)
--- NOTE | 2021-01-11 14:55 | NUR ---
Report called to receiving nurse. Transferred via BED, 1 DUFFLE BAG OF Belongings SENT W/PT TO ROOM 346A, NURSES AIDE AT BEDSIDE TO RECEIVE PT. Special Issues communicated to receiving nurse. YES. Addendum: 01/11/21 at 1545 by Altagracia Kasper RN Amended: Links added.
--- NOTE | 2021-01-11 15:00 | NUR ---
Received pt from recovery via bed. Pt awake A&O. c/o pain 8/ Dil cadd present and pt demonstrates proper use. % lap sitws and small loer medial incision. Island dressing with drainage noted and circled for monitoring. Discussed Post op POC. Pt verbalized understanding. Call light in reach, bed low, pt in no acute distress. VSS
[2021-01-11] MEDS: Potassium Cl inj 20 MEQ in ringers solution, lacted 1,000 ML IV SCH ×2 (15:19→22:25)
[2021-01-11 15:21] LABS: BASOPHILS # (AUTO) 0.1 X10'3 (0-0.2); BASOPHILS % (AUTO) 0.7 % (0-1); EOSINOPHILS # (AUTO) 0.1 X10'3 (0-0.9); EOSINOPHILS % (AUTO) 0.6 % (0-6); HEMATOCRIT 38.8 % (35.0-45.0); HEMOGLOBIN 12.6 g/dl (12.0-16.0); LYMPHOCYTES # (AUTO) 0.9 X10'3 (1.1-4.8); LYMPHOCYTES % (AUTO) 4.7 % (21-51); MEAN CORPUSCULAR HEMOGLOBIN 30.1 PG (27.0-31.0); MEAN CORPUSCULAR HGB CONC 32.4 g/dL (33.0-36.5); MEAN CORPUSCULAR VOLUME 92.6 FL (78-98); MEAN PLATELET VOLUME 8.4 FL (7.4-10.4); MONOCYTES # (AUTO) 0.8 X10'3 (0-0.9); MONOCYTES % (AUTO) 4.1 % (2-12); NEUTROPHILS # (AUTO) 17.5 X10'3 (1.8-7.7); NEUTROPHILS % (AUTO) 89.9 % (42-75); PLATELET COUNT 284 X10'3 (140-440); RED BLOOD COUNT 4.19 X10'6 (4.20-5.60); RED CELL DISTRIBUTION WIDTH 13.3 % (11.5-14.5); WHITE BLOOD COUNT 19.4 X10'3 (4.5-11.0)
[2021-01-11 16:15] LABS: ALANINE AMINOTRANSFERASE 37 U/L (12-78); ALBUMIN 3.1 G/DL (3.4-5.0); ALBUMIN/GLOBULIN RATIO 0.9 (1.1-1.5); ALKALINE PHOSPHATASE 79 IU/L (46-116); ANION GAP 14 (8-16); ASPARTATE AMINO TRANSFERASE 48 U/L (10-37); BLOOD UREA NITROGEN 21 MG/DL (7-18); BUN/CREATININE RATIO 21.6 (6.6-38.0); CALCIUM 8.8 MG/DL (8.5-10.1); CHLORIDE 102 MMOL/L (99-107); CREATININE 0.97 MG/DL (0.40-0.90); GLUCOSE 125 MG/DL (70-104); SODIUM 137 MMOL/L (135-145); TOTAL CARBON DIOXIDE 20.8 MMOL/L (24-32); TOTAL PROTEIN 6.5 G/DL (6.4-8.2); eGFR 62 ML/MIN
[2021-01-11 16:17] LABS: POTASSIUM 4.2 MMOL/L (3.5-5.1)
--- NOTE | 2021-01-11 18:08 | NUR ---
Problems reprioritized. Patient report given, questions answered & plan of care reviewed with Linda RN.
[2021-01-12] VITALS: BP 107/51
[2021-01-12] MEDS: HYDROmorphone/NS 1 mg/ml CADD 50 ML IV SCH ×12 (01:00→23:00)
[2021-01-12 03:30] VITALS: BP 116/63
[2021-01-12] MEDS: Potassium Cl inj 20 MEQ in ringers solution, lacted 1,000 ML IV SCH ×4 (05:17→20:59)
[2021-01-12 05:54] LABS: BASOPHILS % (AUTO) 0.1 % (0-1); EOSINOPHILS % (AUTO) 0.1 % (0-6); HEMATOCRIT 33.1 % (35.0-45.0); LYMPHOCYTES # (AUTO) 1.2 X10'3 (1.1-4.8); LYMPHOCYTES % (AUTO) 8.2 % (21-51); MEAN CORPUSCULAR HEMOGLOBIN 30.1 PG (27.0-31.0); MEAN CORPUSCULAR HGB CONC 33.1 g/dL (33.0-36.5); MEAN CORPUSCULAR VOLUME 91.1 FL (78-98); MEAN PLATELET VOLUME 7.9 FL (7.4-10.4); MONOCYTES # (AUTO) 1.3 X10'3 (0-0.9); MONOCYTES % (AUTO) 8.7 % (2-12); NEUTROPHILS # (AUTO) 11.9 X10'3 (1.8-7.7); NEUTROPHILS % (AUTO) 82.9 % (42-75); PLATELET COUNT 303 X10'3 (140-440); RED BLOOD COUNT 3.64 X10'6 (4.20-5.60); RED CELL DISTRIBUTION WIDTH 12.9 % (11.5-14.5); WHITE BLOOD COUNT 14.4 X10'3 (4.5-11.0)
[2021-01-12 05:57] LABS: ALBUMIN 2.8 G/DL (3.4-5.0); ANION GAP 9 (8-16); BLOOD UREA NITROGEN 14 MG/DL (7-18); BUN/CREATININE RATIO 17.3 (6.6-38.0); CHLORIDE 101 MMOL/L (99-107); CREATININE 0.81 MG/DL (0.40-0.90); GLUCOSE 114 MG/DL (70-104); POTASSIUM 4.3 MMOL/L (3.5-5.1); SODIUM 135 MMOL/L (135-145); TOTAL CARBON DIOXIDE 25.5 MMOL/L (24-32); eGFR 76 ML/MIN
--- NOTE | 2021-01-12 06:57 | NUR ---
Patient in room [facility]. I have received report from THO Mckeon and had the opportunity to ask questions and assume patient care.
[2021-01-12 07:19] VITALS: BP 131/85
--- NOTE | 2021-01-12 10:00 | NUR ---
Attempted to withdraw balloon fluid from FC to remove greer per order. pt stated she felt like she had to urinate and none hade filled the bag lately. on examination, balloon was empty and only the tip of the greer was in the urethra. after complete removal, pt voided 800 ml clear yellow urine.
[2021-01-12 11:00] VITALS: BP 118/79
[2021-01-12 14:07] VITALS: BP 118/79
[2021-01-12 18:00] VITALS: BP 134/76
--- NOTE | 2021-01-12 18:09 | NUR ---
Problems reprioritized. Patient report given, questions answered & plan of care reviewed with THO Lozano.
--- NOTE | 2021-01-12 18:42 | NUR ---
Patient in room [facility]. I have received report from Nanci NETTLES and had the opportunity to ask questions and assume patient care.
[2021-01-13] VITALS: BP 135/79
[2021-01-13] MEDS: HYDROmorphone/NS 1 mg/ml CADD 50 ML IV SCH ×12 (01:00→23:00)
[2021-01-13] MEDS: Potassium Cl inj 20 MEQ in ringers solution, lacted 1,000 ML IV SCH ×3 (03:22→19:05)
--- NOTE | 2021-01-13 06:28 | NUR ---
Report To May NETTLES
--- NOTE | 2021-01-13 06:50 | NUR ---
Patient in room [facility]. I have received report from Marta NETTLES and had the opportunity to ask questions and assume patient care.
[2021-01-13 07:35] VITALS: BP 148/83
[2021-01-13 08:56] LABS: BASOPHILS % (AUTO) 0.1 % (0-1); EOSINOPHILS # (AUTO) 0.2 X10'3 (0-0.9); EOSINOPHILS % (AUTO) 1.8 % (0-6); HEMOGLOBIN 10.2 g/dl (12.0-16.0); LYMPHOCYTES # (AUTO) 1.2 X10'3 (1.1-4.8); LYMPHOCYTES % (AUTO) 9.4 % (21-51); MEAN CORPUSCULAR HEMOGLOBIN 30.2 PG (27.0-31.0); MEAN CORPUSCULAR VOLUME 91.7 FL (78-98); MEAN PLATELET VOLUME 7.8 FL (7.4-10.4); MONOCYTES # (AUTO) 1.2 X10'3 (0-0.9); MONOCYTES % (AUTO) 9.3 % (2-12); NEUTROPHILS % (AUTO) 79.4 % (42-75); PLATELET COUNT 305 X10'3 (140-440); RED BLOOD COUNT 3.38 X10'6 (4.20-5.60); RED CELL DISTRIBUTION WIDTH 13.4 % (11.5-14.5); WHITE BLOOD COUNT 12.6 X10'3 (4.5-11.0)
[2021-01-13 09:23] LABS: ALBUMIN 2.7 G/DL (3.4-5.0); ANION GAP 8 (8-16); BLOOD UREA NITROGEN 8 MG/DL (7-18); BUN/CREATININE RATIO 9.8 (6.6-38.0); CALCIUM 8.7 MG/DL (8.5-10.1); CHLORIDE 103 MMOL/L (99-107); CREATININE 0.82 MG/DL (0.40-0.90); GLUCOSE 95 MG/DL (70-104); POTASSIUM 4.6 MMOL/L (3.5-5.1); SODIUM 139 MMOL/L (135-145); TOTAL CARBON DIOXIDE 28.5 MMOL/L (24-32); eGFR 75 ML/MIN
[2021-01-13] MEDS: ondansetron/PF 4mg/2ml inj IV PRN ×2 (10:20→17:54)
[2021-01-13] MEDS ORDERED: mag hydrox/Alum hydrox/simeth 30ml oral suspension PO ONE (12:05)
[2021-01-13] MEDS: pantoprazole 40 MG vial IV SCH (12:25)
[2021-01-13 14:44] VITALS: BP 157/85
--- NOTE | 2021-01-13 16:23 | NUR ---
Attempted x4 to place NG. Dr Gamble rounded shortly after. Discussed with him that it was unsuccessful. He said to change the order to PRN extreme vomiting.
--- NOTE | 2021-01-13 17:33 | NUR ---
Student Medication Administration: For this medication-pass time frame, all medication were reviewed, dispensed, administered and documented per hospital policy by SN Lamar. Student documentation: I have reviewed all interventions, assessments performed and documented by SN Lamar.
--- NOTE | 2021-01-13 18:31 | NUR ---
Problems reprioritized. Patient report given, questions answered & plan of care reviewed with THO Espinal.
--- NOTE | 2021-01-13 18:32 | NUR ---
Patient in room [facility]. I have received report from ALO NETTLES and had the opportunity to ask questions and assume patient care.
[2021-01-13] MEDS: enoxaparin 40mg/0.4ml syringe SUBCUT SCH (19:09)
[2021-01-13 20:00] VITALS: BP 142/91
[2021-01-14] VITALS: BP 142/91
[2021-01-14] MEDS: HYDROmorphone/NS 1 mg/ml CADD 50 ML IV SCH ×12 (01:00→23:00)
[2021-01-14] MEDS: ondansetron/PF 4mg/2ml inj IV PRN (03:32)
--- NOTE | 2021-01-14 06:25 | NUR ---
Problems reprioritized. Patient report given, questions answered & plan of care reviewed with ALO NETTLES.
[2021-01-14 06:39] LABS: BASOPHILS % (AUTO) 0.2 % (0-1); EOSINOPHILS # (AUTO) 0.1 X10'3 (0-0.9); EOSINOPHILS % (AUTO) 0.5 % (0-6); HEMATOCRIT 36.7 % (35.0-45.0); LYMPHOCYTES # (AUTO) 1.3 X10'3 (1.1-4.8); LYMPHOCYTES % (AUTO) 8.6 % (21-51); MEAN CORPUSCULAR HGB CONC 32.8 g/dL (33.0-36.5); MEAN CORPUSCULAR VOLUME 91.4 FL (78-98); MEAN PLATELET VOLUME 8.2 FL (7.4-10.4); MONOCYTES # (AUTO) 1.2 X10'3 (0-0.9); MONOCYTES % (AUTO) 7.7 % (2-12); PLATELET COUNT 396 X10'3 (140-440); RED BLOOD COUNT 4.01 X10'6 (4.20-5.60); RED CELL DISTRIBUTION WIDTH 13.9 % (11.5-14.5); WHITE BLOOD COUNT 15.6 X10'3 (4.5-11.0)
[2021-01-14 06:40] LABS: ALBUMIN 2.6 G/DL (3.4-5.0); ANION GAP 14 (8-16); BLOOD UREA NITROGEN 9 MG/DL (7-18); BUN/CREATININE RATIO 11.7 (6.6-38.0); CALCIUM 8.9 MG/DL (8.5-10.1); CHLORIDE 100 MMOL/L (99-107); CREATININE 0.77 MG/DL (0.40-0.90); GLUCOSE 115 MG/DL (70-104); POTASSIUM 4.3 MMOL/L (3.5-5.1); SODIUM 138 MMOL/L (135-145); TOTAL CARBON DIOXIDE 24.4 MMOL/L (24-32); eGFR 81 ML/MIN
--- NOTE | 2021-01-14 06:45 | NUR ---
Patient in room [facility]. I have received report from Teddy NETTLES and had the opportunity to ask questions and assume patient care.
[2021-01-14 07:00] VITALS: BP 151/94
[2021-01-14] MEDS: enoxaparin 40mg/0.4ml syringe SUBCUT SCH ×2 (07:47→19:43)
[2021-01-14] MEDS: pantoprazole 40 MG vial IV SCH (07:47)
[2021-01-14] MEDS: Potassium Cl inj 20 MEQ in ringers solution, lacted 1,000 ML IV SCH ×2 (07:52→19:44)
[2021-01-14 11:00] VITALS: BP 139/93
--- NOTE | 2021-01-14 18:06 | NUR ---
Student documentation: I have reviewed and agree with all interventions, assessments performed and documented by SN Lamar. Student Medication Administration: For this medication-pass time frame, all medication were reviewed, dispensed, administered and documented per hospital policy by SN Lamar.
--- NOTE | 2021-01-14 18:06 | NUR ---
Problems reprioritized. Patient report given, questions answered & plan of care reviewed with THO Espinal.
--- NOTE | 2021-01-14 18:30 | NUR ---
Patient in room [facility]. I have received report from ALO NETTLES and had the opportunity to ask questions and assume patient care.
[2021-01-14] MEDS: magnesium hydroxide 30ml (MOM) UD suspension PO SCH (19:43)
[2021-01-14 20:00] VITALS: BP 150/96
[2021-01-15] VITALS: BP 149/95
[2021-01-15] MEDS: HYDROmorphone/NS 1 mg/ml CADD 50 ML IV SCH ×6 (01:00→11:00)
[2021-01-15 06:05] LABS: BASOPHILS # (AUTO) 0.1 X10'3 (0-0.2); BASOPHILS % (AUTO) 0.5 % (0-1); EOSINOPHILS # (AUTO) 0.4 X10'3 (0-0.9); EOSINOPHILS % (AUTO) 3.4 % (0-6); HEMATOCRIT 32.7 % (35.0-45.0); HEMOGLOBIN 10.8 g/dl (12.0-16.0); LYMPHOCYTES # (AUTO) 2.2 X10'3 (1.1-4.8); LYMPHOCYTES % (AUTO) 21.3 % (21-51); MEAN CORPUSCULAR HEMOGLOBIN 30.4 PG (27.0-31.0); MEAN CORPUSCULAR HGB CONC 33.1 g/dL (33.0-36.5); MEAN CORPUSCULAR VOLUME 91.8 FL (78-98); MONOCYTES # (AUTO) 1.1 X10'3 (0-0.9); MONOCYTES % (AUTO) 10.8 % (2-12); NEUTROPHILS # (AUTO) 6.7 X10'3 (1.8-7.7); PLATELET COUNT 394 X10'3 (140-440); RED BLOOD COUNT 3.57 X10'6 (4.20-5.60); RED CELL DISTRIBUTION WIDTH 13.4 % (11.5-14.5); WHITE BLOOD COUNT 10.5 X10'3 (4.5-11.0)
[2021-01-15 06:30] LABS: ALBUMIN 2.5 G/DL (3.4-5.0); ANION GAP 10 (8-16); BLOOD UREA NITROGEN 14 MG/DL (7-18); BUN/CREATININE RATIO 18.7 (6.6-38.0); CALCIUM 8.8 MG/DL (8.5-10.1); CHLORIDE 104 MMOL/L (99-107); CREATININE 0.75 MG/DL (0.40-0.90); GLUCOSE 93 MG/DL (70-104); POTASSIUM 3.8 MMOL/L (3.5-5.1); SODIUM 140 MMOL/L (135-145); TOTAL CARBON DIOXIDE 26.4 MMOL/L (24-32); eGFR 84 ML/MIN
--- NOTE | 2021-01-15 06:35 | NUR ---
Problems reprioritized. Patient report given, questions answered & plan of care reviewed with SONIA NETTLES.
--- NOTE | 2021-01-15 06:45 | NUR ---
Patient in room [facility]. I have received report from CHAS DOHERTY RN and had the opportunity to ask questions and assume patient care.
[2021-01-15 07:00] VITALS: BP 146/93
[2021-01-15] MEDS: magnesium hydroxide 30ml (MOM) UD suspension PO SCH ×2 (08:00→20:00)
[2021-01-15] MEDS: enoxaparin 40mg/0.4ml syringe SUBCUT SCH ×2 (08:44→20:29)
[2021-01-15] MEDS: pantoprazole 40 MG vial IV SCH (08:44)
[2021-01-15] MEDS: Potassium Cl inj 20 MEQ in ringers solution, lacted 1,000 ML IV SCH (09:13)
[2021-01-15] MEDS ORDERED: HYDROcodone/acetaminophen 5mg/325mg tablet PO PRN (10:00)
[2021-01-15] MEDS ORDERED: morphine 4 MG/ML inj SYRINge IV PRN (10:00)
[2021-01-15 11:00] VITALS: BP 131/96
[2021-01-15] MEDS ORDERED: HYDROcodone/acetaminophen 10/325mg tab PO PRN (11:20)
[2021-01-15] MEDS ORDERED: gabapentin 400mg capsule PO SCH (13:00)
[2021-01-15] MEDS: oxyCODONE/APAP 10/325mg tablet PO PRN ×2 (17:40→22:00)
--- NOTE | 2021-01-15 18:41 | NUR ---
Problems reprioritized. Patient report given, questions answered & plan of care reviewed with SHELBY RN.
[2021-01-15 19:30] VITALS: BP 149/98
[2021-01-16] VITALS: BP 116/89
[2021-01-16] MEDS: oxyCODONE/APAP 10/325mg tablet PO PRN ×4 (02:07→15:00)
[2021-01-16 06:13] LABS: ALBUMIN 2.5 G/DL (3.4-5.0); ANION GAP 11 (8-16); BLOOD UREA NITROGEN 11 MG/DL (7-18); BUN/CREATININE RATIO 15.7 (6.6-38.0); CALCIUM 8.8 MG/DL (8.5-10.1); CHLORIDE 101 MMOL/L (99-107); GLUCOSE 90 MG/DL (70-104); POTASSIUM 3.8 MMOL/L (3.5-5.1); SODIUM 140 MMOL/L (135-145); TOTAL CARBON DIOXIDE 27.8 MMOL/L (24-32); eGFR 90 ML/MIN
[2021-01-16 06:17] LABS: BASOPHILS # (AUTO) 0.1 X10'3 (0-0.2); BASOPHILS % (AUTO) 0.6 % (0-1); EOSINOPHILS # (AUTO) 0.3 X10'3 (0-0.9); EOSINOPHILS % (AUTO) 3.5 % (0-6); HEMOGLOBIN 10.7 g/dl (12.0-16.0); LYMPHOCYTES # (AUTO) 1.5 X10'3 (1.1-4.8); LYMPHOCYTES % (AUTO) 18.5 % (21-51); MEAN CORPUSCULAR HEMOGLOBIN 30.6 PG (27.0-31.0); MEAN CORPUSCULAR HGB CONC 33.4 g/dL (33.0-36.5); MEAN CORPUSCULAR VOLUME 91.4 FL (78-98); MEAN PLATELET VOLUME 7.9 FL (7.4-10.4); MONOCYTES # (AUTO) 0.8 X10'3 (0-0.9); MONOCYTES % (AUTO) 9.6 % (2-12); NEUTROPHILS # (AUTO) 5.7 X10'3 (1.8-7.7); NEUTROPHILS % (AUTO) 67.8 % (42-75); PLATELET COUNT 396 X10'3 (140-440); RED BLOOD COUNT 3.49 X10'6 (4.20-5.60); RED CELL DISTRIBUTION WIDTH 13.3 % (11.5-14.5); WHITE BLOOD COUNT 8.4 X10'3 (4.5-11.0)
--- NOTE | 2021-01-16 06:52 | NUR ---
Patient in room [facility]. I have received report from Pat RN and had the opportunity to ask questions and assume patient care.
[2021-01-16 07:00] VITALS: BP 112/90
[2021-01-16] MEDS: magnesium hydroxide 30ml (MOM) UD suspension PO SCH (07:24)
[2021-01-16] MEDS: pantoprazole 40 MG vial IV SCH (07:26)
[2021-01-16] MEDS: enoxaparin 40mg/0.4ml syringe SUBCUT SCH (07:26)
[2021-01-16 11:00] VITALS: BP 164/93
--- NOTE | 2021-01-16 13:19 | NUR ---
Initial: Pt admit for cholecystectomy and sigmoid colon resection due to diverticulitis. PO intake on a clear liquid diet ~25-50% x 3 days not meeting estimated nutrient needs on current restrictive diet. Last BM 01/15 with routine bowel care available. Will continue to monitor protein/kcal needs as diet advances. Recommendations: 1) Advance diet to regular as medically indicated. 2) Bowel Care per Rx 3) Weekly wts Addendum: 01/16/21 at [address] Amended: Links added. Addendum: 01/16/21 at [address] BARBRA agrees w/ above international tax manager note.
--- NOTE | 2021-01-16 17:42 | NUR ---
Patient discharged home accompanied by her sister. Patient verbalized understanding of all instructions made. Peripheral IV catheter removed, tip intact. Instructed patient to ensure she has all her belongings with her before leaving. Extra island dressing given to patient for her surgical wound.
== END 2021-01-16 17:35 | disposition home or self-care (01) | DRG 330 ==
LOC: UNDOADMIN 05:36 → PAS IN 05:36 → SUR 3N 15:10 → PAS IN 15:10
PROVIDERS: ADMIT Surgery; ATTEND Surgery
PROC: 0T788DZ Dilation of Bilateral Ureters with Intraluminal Device, Via Natural or Artificial Opening Endoscopic (ICD-10-PCS; 2021-01-11)
PROC: 0T9B80Z Drainage of Bladder with Drainage Device, Via Natural or Artificial Opening Endoscopic (ICD-10-PCS; 2021-01-11)
PROC: 0DBN4ZZ Excision of Sigmoid Colon, Percutaneous Endoscopic Approach (ICD-10-PCS; principal; 2021-01-11 08:05)
PROC: 0FT44ZZ Resection of Gallbladder, Percutaneous Endoscopic Approach (ICD-10-PCS; 2021-01-11 08:05)
DX: K57.20 Diverticulitis of large intestine with perforation and abscess without bleeding (principal); K56.699 Other intestinal obstruction unspecified as to partial versus complete obstruction; K90.49 Malabsorption due to intolerance, not elsewhere classified; Z68.42 Body mass index [BMI] 45.0-49.9, adult; K80.20 Calculus of gallbladder without cholecystitis without obstruction; E66.9 Obesity, unspecified; Z00.6 Encounter for examination for normal comparison and control in clinical research program; Z88.1 Allergy status to other antibiotic agents; Z79.899 Other long term (current) drug therapy
CPT/HCPCS: Z7506; Z7508; 36415; 76000; 80048; 80053; 81001; 81025; 82948; 85025; 85610; 85730; 86885; 86900; 86901; 87081; 93005; A4215; A4355; A4618; A7000; C1758; C1769; C9113; G0378; J0131; J0694; J1100; J1170; J1650; J1885; J2001; J2175; J2250; J2270; J2405; J2704; J2710; J3010; J3480; J3490; J7120; U0003